=== PATIENT | female | born 1950 | race Caucasian/White ===

== ENCOUNTER 2019-10-11 03:18 | Outpatient (CLI) | payer OTHER, SELFPAY ==
--- NOTE | 2019-10-11 14:06 | DI.CTLCSR_ITS ---
EXAM: CT CHEST LUNG CANCER SCREEN CLINICAL HISTORY: SCREENING FOR LUNG CA, CURRENT SMOKER, F17.210, WELLNESS EXAM,Z00.00 TECHNIQUE: COMPARISON: No exams were available for comparison FINDINGS: Chest CT was performed utilizing low-dose lung cancer screening protocol. Images obtained through the upper abdomen show unremarkable appearance of visualized portions of the liver, spleen, and pancreas. No mediastinal or hilar adenopathy. Note is made of coronary artery calcification. Lungs are clear. Mild mosaic attenuation noted throughout the lungs. No pulmonary nodule or consoli dation. No pleural effusion or pleural-based mass. Tracheobronchial tree appears intact. IMPRESSION: Lung RADS Cat 1 - Negative: No nodules and definitely benign nodules Negative LDCT, continue annual screening with LD CT in 12 months.
== END 2019-10-11 03:38 ==
PROVIDERS: PCP Nurse Practitioner Family; Visit Provider Nurse Practitioner Family
DX: Z12.2 Encounter for screening for malignant neoplasm of respiratory organs (principal); F17.210 Nicotine dependence, cigarettes, uncomplicated; Z00.00 Encounter for general adult medical examination without abnormal findings
CPT/HCPCS: G0297